=== PATIENT | female | born 1980 | race African-American/Black ===

== ENCOUNTER 2022-03-15 02:19 | Emergency (ER) | payer MEDICAID, OTHER ==
[~2022-03-15] VITALS: Ht 175.3 cm; Wt 100.0 kg
[2022-03-15] MEDS ORDERED: ACETAMINOPHEN 325MG TABLET PO STA (02:36)
[2022-03-15] MEDS ORDERED: ONDANSETRON HCL 4MG/2ML INJ IV STA (02:36)
[2022-03-15] MEDS ORDERED: SODIUM CHLORIDE 0.9% 1,000 ML IV ONE (02:45)
[2022-03-15 03:12] LABS: BASOPHILS % 0.4 % (0.0-2.0); EOSINOPHILS % 0.2 % (0.0-5.0); HEMATOCRIT. 24.7 % (36.0-48.0); HEMOGLOBIN. 7.1 g/dL (12.0-16.0); MEAN CORPUSCULAR HEMOGLOBIN 18.3 pg (28.0-32.0); MEAN CORPUSCULAR VOLUME 63.7 fL (81.0-99.0); MEAN PLATELET VOLUME 8.6 fl (7.4-10.4); MONOCYTES % 9.6 % (2.0-8.0); NEUTROPHILS % 77.8 % (40.0-76.0); PLATELET 196 x1000/uL (130-400); RED BLOOD CELL COUNT 3.89 mill/uL (4.2-5.4); RED CELL DISTRIBUTION WIDTH 20.6 % (11.6-14.6)
[2022-03-15 03:28] LABS: CHLORIDE 108 mEq/L (98-107); HCG SCREEN NEGATIVE
[2022-03-15 03:35] LABS: ETHANOL BLOOD < 10 mg/dL
[2022-03-15] MEDS ORDERED: MORPHINE SULFATE 4 MG/ML CPJ (NOT FOR IM USE) IV ONE (05:00)
[2022-03-15] MEDS ORDERED: ONDANSETRON HCL 4MG/2ML INJ IV NR (05:00)
[2022-03-15] MEDS ORDERED: ACETAMINOPHEN 325MG TABLET PO NR (05:00)
[2022-03-15 05:54] LABS: CLARITY URINE CLOUDY (CLEAR); COLOR URINE DARK YELLOW (YELLOW); KETONES URINE 2+ (NEGATIVE); LEUKOCYTE ESTERASE URINE 1+ (NEGATIVE); NITRITE URINE NEGATIVE (NEGATIVE); OCCULT BLOOD URINE 3+ (NEGATIVE); PH URINE 5.5 (4.5-8.0); PROTEIN URINE 2+ (NEGATIVE); SPECIFIC GRAVITY URINE 1.028 (1.005-1.030)
[2022-03-15] MEDS ORDERED: PROT40 MT (05:56)
[2022-03-15] MEDS ORDERED: ACET-2708 MT (05:56)
[2022-03-15] MEDS ORDERED: ONDA4TAB50 MT (05:56)
[2022-03-15 06:20] LABS: *AMPHETAMINES SCREEN URINE NEGATIVE (NEGATIVE); *BARBITURATES SCREEN URINE NEGATIVE (NEGATIVE); *BENZODIAZEPINES SCREEN URINE NEGATIVE (NEGATIVE); *COCAINE SCREEN URINE NEGATIVE (NEGATIVE); CANNABINOID URINE SCREEN NEGATIVE (NEGATIVE); METHADONE URINE SCREEN NEGATIVE (NEGATIVE); OPIATES URINE SCREEN NEGATIVE (NEGATIVE); PHENCYCLIDINE URINE SCREEN NEGATIVE (NEGATIVE)
[2022-03-15 06:27] LABS: PLATELET ESTIMATE NORMAL
[2022-03-15 08:24] VITALS: BP 125/72
== END 2022-03-15 09:37 | disposition home or self-care (01) ==
LOC: ER 02:19
DX: R10.9 Unspecified abdominal pain (principal); I10 Essential (primary) hypertension; Z13.9 Encounter for screening, unspecified
CPT/HCPCS: 36415; 74176; 80053; 80305; 80320; 81003; 83690; 84703; 85025; 96374; 96375; 99284; J2270; J2405; J7030; Z7610; G0480